=== PATIENT | female | born 1930 | race Caucasian/White ===

== ENCOUNTER → 2016-11-17 | Outpatient (CLI) | payer MEDICARE, BC ==
--- NOTE | 2016-11-17 17:01 | RADRPT ---
PROCEDURE: XR Pelvis. CLINICAL INDICATION: Hip pain TECHNIQUE: Single AP view performed. COMPARISON: No prior studies are available for comparison. FINDINGS: ORIF of old healed left intertrochanteric fracture with an intramedullary yordan and dynamic compressio n pin. There is a proximal femoral cerclage wire. There is moderate bilateral hip osteoarthrosis. This is associated with joint space narrowing, subch ondral sclerosis and osteophytosis. There is diffuse osteopenia. No fractures or osseous lesions a re identified. The soft tissues are unremarkable. IMPRESSION: ORIF of old healed left intertrochanteric fracture with an intramedullary yordan and dynamic compressio n pin. Diffuse osteopenia Moderate bilateral hip osteoarthrosis. RPTAT: [facility] .Juan Noguera MD, Date Time Electronically viewed and signed by .Juan Noguera MD, on 11/17/2016 17:00 .B/
--- NOTE | 2016-11-17 17:03 | RADRPT ---
PROCEDURE: XR left femur. CLINICAL INDICATION: Pain TECHNIQUE: AP and lateral views performed. COMPARISON: 04/06/2014 FINDINGS: ORIF of old healed left intertrochanteric fracture with an intramedullary yordan and dynamic compressio n pin. There is a proximal femoral cerclage wire. There is moderate left hip osteoarthrosis. This is associated with joint space narrowing, subchondra l sclerosis and osteophytosis. There is moderate left knee osteoarthrosis. There is diffuse osteopen ia. No acute fractures or osseous lesions are identified. The soft tissues are unremarkable. IMPRESSION: ORIF of old healed left intertrochanteric fracture with an intramedullary yordan and dynamic compressio n pin. Diffuse osteopenia Moderate left hip osteoarthrosis. Moderate left knee osteoarthrosis .Juan Noguera MD, Date Time Electronically viewed and signed by .Juan Noguera MD, on 11/17/2016 17:03 .B/
== END | disposition home or self-care (01) ==
LOC: HKI 14:10
PROVIDERS: ATTEND Orthopaedic Surgery
DX: M54.16 Radiculopathy, lumbar region (principal); M51.36 Other intervertebral disc degeneration, lumbar region; S72.22 Displaced subtrochanteric fracture of left femur; M17.12 Unilateral primary osteoarthritis, left knee; M16.0 Bilateral primary osteoarthritis of hip
CPT/HCPCS: 72170; 73552; G0463